=== PATIENT | female | born 1935 | race Caucasian/White ===

== ENCOUNTER 2018-06-02 18:55 | Inpatient (IN) | payer OTHER ==
[~2018-06-02] VITALS: Ht 162.6 cm; Wt 57.4 kg
--- NOTE | ~2018-06-02 | O ---
[address] [address] OPERATIVE REPORT Name: CORTNEY AMARAL Room #: 459-P ADM IN M.R.#: [id number] Admission: 06/02/18 Attend Phys: Galo Spencer MD Discharge: Date of : 31 Report #: [id number] THIS REPORT FOR: //name// CC: Galo Last DATE OF SERVICE: 06/03/2018 SERVICE: Orthopedics. FACILITY: [facility]. SURGEON: Cordell Valero MD [employer] TECHNICIAN: Wanda Stanton NP INDICATIONS FOR [employer] TECHNICIAN: Extremity positioning and assistance with reconstruction. PREOPERATIVE DIAGNOSIS: Displaced left femoral neck fracture. POSTOPERATIVE DIAGNOSIS: Displaced left femoral neck fracture. PROCEDURE: Left hip hemiarthroplasty. COMPLICATIONS: None. DRAINS: None. SPECIMENS: None. ESTIMATED BLOOD LOSS: 150 mL ANESTHESIA: General. FINDINGS: 1. [employer] size 11 cemented stem with size 44 head with standard offset neck and -3 sleeve. 2. Intraoperative x-ray confirmed appropriate positioning of the trial. 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 She was transferred from the outside hospital to [facility] for surgical treatment. She was felt to be an optimal candidate in terms of her cardiopulmonary standpoint within the context of her medical comorbidities. Risks, benefits, alternatives and indication of surgery discussed with her and her family and they gave full [address] [address] OPERATIVE REPORT Name: CORTNEY AMARAL Room #: 459-P [facility] IN M.R.#: [id number] Admission: 06/02/18 Attend Phys: Galo Spencer MD Discharge: Date of : 31 Report #: [id number] informed consent and wished to proceed. Risks include, but not limited to, pain, bleeding, infection, injury to nerves, blood vessels, fracture, instability, need for further surgery as well as complications related to anesthesia. Despite the risks, she wished to proceed. PROCEDURE IN DETAIL: After the left lower extremity was correctly identified in the preoperative holding as operative extremity, the patient was taken to the operating room where general anesthesia was induced without complication. She was turned into lateral decubitus position with left side up, right side up, padded appropriately. Prophylactic antibiotics were administered at appropriate time. Left lower extremity was then prepped and draped in standard sterile fashion. Timeout procedure was performed. Standard posterior approach was made. A skin incision with dissection taken down to the fascia. The fascia was incised and retracted. The sciatic nerve was visualized and palpated and protected throughout the procedure. The piriformis was identified and was tagged and then reflected off the posterior aspect of the femur. Short external rotators were reflected as well and then the capsule was incised with a U-shaped capsulotomy performed and the capsule was reflected and preserved for repair at the conclusion of the procedure. The femoral head was then excised, sized for 44 and then the femoral neck was prepared. A fresh cut was made with a sagittal saw with the goal was approximately 1 cm calcar measured from the lesser trochanter. The proximal femur was then entered in a typical fashion and then the proximal femur was sequentially reamed and then broached to a size 13 trial. An intraoperative x-ray was taken at this point to assess length. It appeared that was slightly long by few millimeters. We did a digital measurement as well as correlation with the AP pelvis injury film. I then performed physical examination with deep implant and with extension and external rotation, position of sleep at 90/90 position as well as with the shuck test. Her length seems slightly long, so we elected not to go with a -3 sleeve. At this point, retrialed and were happy with the stability as well as the length and range of motion. The trial head was then removed. The femur was prepared after the broach stem was removed and then, the wrist restrictor was placed distally. Then, the cement was placed in a typical fashion. The final implant was placed and allowed to sit in the appropriate anatomic version for this particular patient. After the cement was cured, the trunnion was cleaned and then, the final head and liner was impacted into position. The hip was reduced after the hip was once again irrigated and it was checked once more for length as well as stability in extension external rotation, position of sleep at 90/90 position. After this was completed, a 0.5 g of vancomycin powder was placed deep into the joint and then the capsulotomy was closed with three #2 FiberWire sutures and then the piriformis was repaired to the posterior aspect of the femur and capsule as well. At this point, the wound was once more irrigated, dried and then the remaining 0.5 g of vancomycin powder was placed superficial to the capsule. The IT band layer was closed with 0 Vicryl suture. The fat layer was closed with 0 Vicryl and the skin was closed [facility] [address] [place] [address] OPERATIVE REPORT Name: CORTNEY AMARAL Room #: 459-P [facility] IN M.R.#: [id number] Admission: 06/02/18 Attend Phys: Galo Spencer MD Discharge: Date of : 31 Report #: [id number] with 2-0 Vicryl followed by skin dee and EMEKA sterile dressing. The patient was awakened from anesthesia after an abduction pillow and was taken to recovery room in stable condition. There were no complications. All counts were recorded as correct. <ELECTRONICALLY SIGNED> By: Cordell Valero MD 06/04/18 1029 [id number] Cordell Valero MD /nt
--- NOTE | ~2018-06-02 | EKG ---
[address] [address] ELECTROCARDIOGRAM REPORT Name: CORTNEY AMARAL Room #: 459-P ADM IN M.R.#: [id number] Admission: 06/02/18 Attend Phys: Galo Spencer MD Discharge: Date of : 31 Report #: [id number] THIS REPORT FOR: //name// [facility] Test Date: 2018-06-04 Test Time: 07:38:51 Pat Name: CORTNEY AMARAL Department: Room: 459 Gender: F Care Consultant: JACKIE : 1935 Requested By: Anyi Torres Order Number: [id number] MD: Hardeep Clark Measurements Intervals [place] Rate: 71 P: 52 WI: 222 QRS: 25 QRSD: 86 T: 56 QT: 391 QTc: 425 Interpretive Statements Sinus rhythm Ventricular premature complex Prolonged WI interval Compared to ECG 02/07/2007 07:43:30 Ventricular premature complex(es) now present Atrial premature complex(es) no longer present atrial pacing no longer present Electronically Signed On 06-04-2018 9:12:[address] STENOGRAPHER by Hardepe Clark [email or web address] <ELECTRONICALLY SIGNED> By: Hardeep Clakr MD, [facility] 06/04/18911 0738 Hardeep Clark MD, [facility] /EPI
--- NOTE | ~2018-06-02 | 2DMMODE ---
[address] [address] [facility] [place] [address] 2 D/M-MODE ECHOCARDIOGRAM Name: CORTNEY AMARAL Room #: 459-P ADM IN M.R.#: [id number] Admission: 06/02/18 Attend Phys: Galo Spencer MD Discharge: Date of : 31 Date of Service: 06/03/18 0953 Report #: [id number] THIS REPORT FOR: //name// APPROVED REPORT Study performed: 06/03/2018 08:07:17 EXAM: Comprehensive 2D, Doppler, and color-flow Echocardiogram Patient Location: Bedside Room #: 459 Status: routine BSA: 1.61 HR: 69 bpm BP: 119/55 mmHg Rhythm: NSR Other Information Study Quality: Adequate Technically limited study due to inability to position patient. Indications Pre-Op hip surgery. Hx: Pacemaker, LA, CAD, stent, HTN. 2D Dimensions RVDd: 36.38 mm IVSd: 17.90 (7-11mm) LVOT Diam: 21.24 (18-24mm) LVDd: 31.47 mm PWd: 10.27 (7-11mm) Ascending Ao: 34.99 (22-36mm) LVDs: 22.73 (25-40mm) Aortic Root: 33.10 mm Volumes Left Atrial Volume (Systole) Single Plane 4CH: 21.90 mL Single Plane 2CH: 32.02 mL Aortic Valve AoV Peak Tal.: 2.37 m/s AO Peak Gr.: 22.53 mmHg LVOT Max P.98 mmHg AO Mean Gr.: 10.82 mmHg AO V2 Mean: 1.57 m/s LVOT Max V: 1.00 m/s AO V2 VTI: 47.01 cm DEMARCUS Vmax: 1.49 cm2 Mitral Valve [facility] [place] [address] 2 D/M-MODE ECHOCARDIOGRAM Name: JERODELLISCORTNEY Room #: 459-P ADM IN M.R.#: [id number] Admission: 06/02/18 Attend Phys: Galo Spencer MD Discharge: Date of : 31 Date of Service: 06/03/18 0953 Report #: [id number] E/A Ratio: 0.8 MV Decel. Time: 191.11 ms MV E Max Tal.: 0.70 m/s MV A Tal.: 0.85 m/s MV PHT: 55.42 ms IVRT: 69.20 ms Pulmonary Valve PV Peak Tal.: 1.22 m/s PV Peak Gr.: 5.93 mmHg Tricuspid Valve TR Peak Tal.: 3.52 m/s RAP Estimate: 5.00 mmHg TR Peak Gr.: 49.45 mmHg PA Pressure: 55.00 mmHg Left Ventricle The left ventricle is normal size. There is normal LV segmental wall motion. Mild basal septal hypertrophy is present. Left ventricular systolic function is normal. LVEF is 60-65%. Mild diastolic dysfunction is present (impaired relaxation pattern). Right Ventricle The right ventricular systolic function is normal. Pacemaker lead is present in the right ventricle. Atria The left atrium size is normal. Right atrium is dilated. Aortic Valve Aortic valve is moderately calcified. Trace aortic regurgitation. There is mild valvular aortic stenosis. Calculated aortic valve area is 1.6 cm2 with maximum pressure gradient of 23 mmHg and mean pressure gradient of 11 mmHg. Mitral Valve The mitral valve is normal in structure. Trace mitral regurgitation. Tricuspid Valve The tricuspid valve is normal in structure. Moderate to severe tricuspid regurgitation. Estimated PAP is 55mmHg. Pulmonic Valve The pulmonary valve is normal in structure. Mild to moderate pulmonic regurgitation. [facility] [address] [place] [address] 2 D/M-MODE ECHOCARDIOGRAM Name: CORTNEY AMARAL Amilcar Room #: 459-P [facility] IN [facility]#: [id number] Admission: 06/02/18 Attend Phys: Galo Spencer MD Discharge: Date of : 31 Date of Service: 06/03/18 0953 Report #: [id number] Great Vessels The aortic root is normal in size. The ascending aorta is normal in size. IVC is normal in size and collapses >50% with inspiration. Pericardium There is no pericardial effusion. <Conclusion> The left ventricle is normal size. Mild basal septal hypertrophy is present. Left ventricular systolic function is normal. Mild diastolic dysfunction is present (impaired relaxation pattern). Pacemaker lead is present in the right ventricle. The left atrium size is normal. Right atrium is dilated. There is mild valvular aortic stenosis. Trace mitral regurgitation. Moderate to severe tricuspid regurgitation. Estimated PAP is 55mmHg. <ELECTRONICALLY SIGNED> By: Ivan Vargas MD 06/03/1853 2 2 Ivan Vargas MD /INF
[2018-06-02 18:55] VITALS: BP 132/71
[~2018-06-02 18:55] MED LIST: CENTRUM SILVER1 EAC4 PO; CITRACAL SOFT1 EACH PO; CLONIDINE0.1 PO; CRESTOR10 MG PO; FISH OIL 1,001000 M2 PO; LASIX 20 MG TAB20 MG PO; LISINOPRIL20 MG PO; PRADAXA150 MG PO; TENORMIN50 MG PO; TRAVATAN Z2.5 ML OPHTHALMIC
[2018-06-02] MEDS ORDERED: NORVASC5 MG PO (19:42)
[2018-06-02] MEDS ORDERED: NITROGLYCERIN0.4 MG SUBLING (19:47)
[2018-06-02] MEDS ORDERED: PRADAXA150 MG PO (19:49)
[2018-06-03 04:34] VITALS: BP 108/93
[2018-06-03 07:36] VITALS: BP 119/55
[2018-06-03 13:14] LABS: INR 1.2; PROTIME 12.1 Seconds (9.3-11.4)
[2018-06-03 15:33] VITALS: BP 108/50
[2018-06-03 16:08] LABS: HEMATOCRIT 35.1 % (37.0-47.0); HEMOGLOBIN 12.1 gm/dL (12.0-15.0); MCH 30.9 pg (26.0-34.0); MCHC 34.4 g/dL (28.0-37.0); MCV 89.6 fL (80.0-100.0); RBC 3.91 mil/uL (4.20-5.00); RDW 13.4 % (10.5-14.5); WBC 9.3 thou/uL (4.0-11.0)
[2018-06-03 16:16] LABS: CALCIUM 8.8 mg/dL (8.5-10.1); POTASSIUM 4.1 mmol/L (3.5-5.1)
[2018-06-03 23:19] VITALS: BP 100/58
[2018-06-04] VITALS (9 sets, daily range): BP systolic 91–129; BP diastolic 43–75
[2018-06-04 04:33] LABS: CALCIUM 8.5 mg/dL (8.5-10.1); CREATININE 1.2 mg/dL (0.6-1.0); POTASSIUM 4.3 mmol/L (3.5-5.1)
[2018-06-04 04:41] LABS: ABSOLUTE NEUTROPHILS 8.5 thou/uL (1.4-8.2); BASOPHILS 0.2 % (0.0-2.0); EOSINOPHILS 0.1 % (0.0-3.0); HEMATOCRIT 34.1 % (37.0-47.0); HEMOGLOBIN 11.6 gm/dL (12.0-15.0); LYMPHOCYTES 2.2 % (24.0-44.0); MCH 30.4 pg (26.0-34.0); MCHC 33.9 g/dL (28.0-37.0); MCV 89.6 fL (80.0-100.0); PLATELET COUNT 126 thou/uL (150-400); POLYS 90.5 % (36.0-66.0); RBC 3.81 mil/uL (4.20-5.00); RDW 13.3 % (10.5-14.5); WBC 9.3 thou/uL (4.0-11.0)
[2018-06-05 04:06] VITALS: BP 95/36
[2018-06-05 05:48] LABS: HEMATOCRIT 31.9 % (37.0-47.0); HEMOGLOBIN 10.6 gm/dL (12.0-15.0); MCHC 33.4 g/dL (28.0-37.0); MCV 89.9 fL (80.0-100.0); RBC 3.54 mil/uL (4.20-5.00); RDW 13.3 % (10.5-14.5); WBC 9.2 thou/uL (4.0-11.0)
[2018-06-05 07:20] VITALS: BP 90/54
[2018-06-05 15:00] VITALS: BP 82/53
[2018-06-05 19:47] VITALS: BP 108/54
[2018-06-06 04:31] VITALS: BP 132/97
[2018-06-06 04:53] LABS: HEMATOCRIT 28.6 % (37.0-47.0); MCH 30.7 pg (26.0-34.0); MCHC 34.9 g/dL (28.0-37.0); MCV 87.8 fL (80.0-100.0); RBC 3.26 mil/uL (4.20-5.00); RDW 13.3 % (10.5-14.5); WBC 7.3 thou/uL (4.0-11.0)
[2018-06-06 07:17] VITALS: BP 98/45
[2018-06-06 08:28] LABS: CALCIUM 8.6 mg/dL (8.5-10.1); POTASSIUM 4.5 mmol/L (3.5-5.1)
[2018-06-06] MEDS ORDERED: HYDROCODONE-AP1 EAC6 PO (09:01)
[2018-06-06 09:36] VITALS: BP 92/76
== END 2018-06-06 13:13 | DRG 469 ==
LOC: 4W 18:55
PROVIDERS: Anesthesiology; Hospitalist; Nurse Practitioner Acute Care; Nurse Practitioner Gerontology; Orthopaedic Surgery Sports Medicine
PROC: 0SRS0J9 Replacement of Left Hip Joint, Femoral Surface with Synthetic Substitute, Cemented, Open Approach (ICD-10-PCS; principal; 2018-06-03)
DX: S72.002A Fracture of unspecified part of neck of left femur, initial encounter for closed fracture (principal); E43 Unspecified severe protein-calorie malnutrition; N17.9 Acute kidney failure, unspecified; E87.1 Hypo-osmolality and hyponatremia; K21.9 Gastro-esophageal reflux disease without esophagitis; M81.0 Age-related osteoporosis without current pathological fracture; E78.5 Hyperlipidemia, unspecified; I25.10 Atherosclerotic heart disease of native coronary artery without angina pectoris; N18.9 Chronic kidney disease, unspecified; M19.90 Unspecified osteoarthritis, unspecified site; M62.84 Sarcopenia; I12.9 Hypertensive chronic kidney disease with stage 1 through stage 4 chronic kidney disease, or unspecified chronic kidney disease; I48.0 Paroxysmal atrial fibrillation; W01.0XXA Fall on same level from slipping, tripping and stumbling without subsequent striking against object, initial encounter; Y93.89 Activity, other specified; Y92.89 Other specified places as the place of occurrence of the external cause; Y99.8 Other external cause status; Z88.1 Allergy status to other antibiotic agents; Z88.8 Allergy status to other drugs, medicaments and biological substances; Z95.0 Presence of cardiac pacemaker; Z82.49 Family history of ischemic heart disease and other diseases of the circulatory system; Z95.5 Presence of coronary angioplasty implant and graft; Z79.899 Other long term (current) drug therapy; Z47.89 Encounter for other orthopedic aftercare; Z68.21 Body mass index [BMI] 21.0-21.9, adult
CPT/HCPCS: 10045; 10047; 50010; 50101; 50382; 50414; 50939; 51057; 51130; 51225; 51226; 51412; 53000; 53078; 56524; 56528; 56530; 57095; 57103; 57165; 62110; 62900; 70005

== ENCOUNTER → 2020-01-20 | Outpatient (CLI) | payer OTHER ==
[~2020-01-20] MED LIST changes: +HYDROCODONE-AP1 EAC6 PO; +NITROGLYCERIN0.4 MG SUBLING; +NORVASC5 MG PO
== END ==
LOC: SJCVCIMAG 07:17
PROVIDERS: ATTEND Internal Medicine Cardiovascular Disease
DX: I08.8 Other rheumatic multiple valve diseases (principal); I11.9 Hypertensive heart disease without heart failure; I48.0 Paroxysmal atrial fibrillation; I25.10 Atherosclerotic heart disease of native coronary artery without angina pectoris; E78.49 Other hyperlipidemia; I49.5 Sick sinus syndrome; D68.59 Other primary thrombophilia; E78.5 Hyperlipidemia, unspecified; Z79.899 Other long term (current) drug therapy; Z82.49 Family history of ischemic heart disease and other diseases of the circulatory system; Z95.0 Presence of cardiac pacemaker

== ENCOUNTER → 2020-10-24 | Outpatient (CLI) | payer OTHER | LOC: SJCVC 12:40 | PROVIDERS: ATTEND Internal Medicine Cardiovascular Disease | DX: I25.10 Atherosclerotic heart disease of native coronary artery without angina pectoris (principal); I12.0 Hypertensive chronic kidney disease with stage 5 chronic kidney disease or end stage renal disease; N18.5 Chronic kidney disease, stage 5; I48.0 Paroxysmal atrial fibrillation; D68.59 Other primary thrombophilia; E78.49 Other hyperlipidemia; I49.5 Sick sinus syndrome; E78.00 Pure hypercholesterolemia, unspecified; I35.0 Nonrheumatic aortic (valve) stenosis; E78.5 Hyperlipidemia, unspecified; Z98.890 Other specified postprocedural states; Z95.0 Presence of cardiac pacemaker; Z88.0 Allergy status to penicillin; Z88.8 Allergy status to other drugs, medicaments and biological substances; Z79.899 Other long term (current) drug therapy; Z82.49 Family history of ischemic heart disease and other diseases of the circulatory system ==

== ENCOUNTER → 2021-05-01 | Outpatient (CLI) | payer OTHER | LOC: SJCVCIMAG 07:54 | PROVIDERS: ATTEND Internal Medicine Cardiovascular Disease | DX: I08.8 Other rheumatic multiple valve diseases (principal); I49.5 Sick sinus syndrome; I48.0 Paroxysmal atrial fibrillation; I25.10 Atherosclerotic heart disease of native coronary artery without angina pectoris; I35.0 Nonrheumatic aortic (valve) stenosis; E78.5 Hyperlipidemia, unspecified; I12.0 Hypertensive chronic kidney disease with stage 5 chronic kidney disease or end stage renal disease; N18.6 End stage renal disease; E78.00 Pure hypercholesterolemia, unspecified; Z95.0 Presence of cardiac pacemaker; Z79.899 Other long term (current) drug therapy; Z88.0 Allergy status to penicillin; Z88.1 Allergy status to other antibiotic agents; Z88.8 Allergy status to other drugs, medicaments and biological substances ==